=== PATIENT | male | born 1960 | race Caucasian/White ===

== ENCOUNTER 2021-06-25 07:33 | Emergency (ER) | payer OTHER ==
[~2021-06-25] VITALS: Ht 185.4 cm; Wt 124.4 kg
[2021-06-25 09:19] LABS: BASOPHILS % (AUTO) 1 % (0-1); EOSINOPHILS % (AUTO) 1 % (1-7); LYMPHOCYTES % (AUTO) 32 % (22-44); MEAN CORPUSCULAR HEMOGLOBIN 29.9 pg (27.5-34.5); MEAN CORPUSCULAR HGB CONC 34.1 g/dL (33.2-36.2); MEAN PLATELET VOLUME 8.1 fL (7.4-10.4); MONOCYTES % (AUTO) 10 % (2-9); NEUTROPHILS % (AUTO) 55 % (42-75); PLATELET COUNT 140 x10^3/uL (130-400); RED BLOOD COUNT 5.91 x10^6/uL (4.38-5.82); RED CELL DISTRIBUTION WIDTH 14.5 % (9.4-14.8)
[2021-06-25 09:29] VITALS: BP 120/72
[2021-06-25 09:30] LABS: ALANINE AMINOTRANSFERASE 44 U/L (12-78); ALBUMIN 3.7 g/dL (3.4-5.0); ANION GAP 8 mmol/L (5-15); CALCIUM 8.5 mg/dL (8.5-10.1); CHLORIDE 102 mmol/L (98-107); CREATININE 1.13 mg/dL (0.7-1.3)
[2021-06-25 09:32] LABS: ALKALINE PHOSPHATASE 90 U/L (45-117); BILIRUBIN,TOTAL 0.9 mg/dL (0.2-1.0); TOTAL PROTEIN 7.8 g/dL (6.4-8.2)
--- NOTE | 2021-06-25 11:33 | NUR ---
PT IN ROOM. PT STATE "I ONLY WANTED A COVID TEST, YOU GUYS HAD ME WAIT OUT THERE FOR HOURS AND THEY TOOK BLOOD AND DID AN X-RAY. ALL I WANTED WAS A COVID TEST. YOU CAN CALL ME IF IT'S POSITIVE." THEN PT LEFT.
== END 2021-06-25 11:38 | disposition left against medical advice (07) ==
LOC: ED 08:10
DX: U07.1 COVID-19 (principal); B34.9 Viral infection, unspecified; R06.02 Shortness of breath
CPT/HCPCS: 71045; 80053; 85025; 87040; 99284; U0003; U0005

== ENCOUNTER 2021-06-29 10:07 | Emergency (ER) | payer OTHER ==
[~2021-06-29] VITALS: Ht 185.4 cm; Wt 120.6 kg
[2021-06-29 10:44] LABS: BASOPHILS % (AUTO) 1 % (0-1); EOSINOPHILS % (AUTO) 1 % (1-7); LYMPHOCYTES % (AUTO) 17 % (22-44); MEAN CORPUSCULAR HEMOGLOBIN 29.9 pg (27.5-34.5); MEAN CORPUSCULAR HGB CONC 34.5 g/dL (33.2-36.2); MEAN PLATELET VOLUME 7.7 fL (7.4-10.4); MONOCYTES % (AUTO) 8 % (2-9); NEUTROPHILS % (AUTO) 73 % (42-75); PLATELET COUNT 166 x10^3/uL (130-400); RED BLOOD COUNT 5.72 x10^6/uL (4.38-5.82); RED CELL DISTRIBUTION WIDTH 14.3 % (9.4-14.8)
[2021-06-29 10:56] LABS: ALBUMIN 3.7 g/dL (3.4-5.0); ANION GAP 6 mmol/L (5-15); CHLORIDE 107 mmol/L (98-107); CREATININE 1.02 mg/dL (0.7-1.3)
[2021-06-29] MEDS ORDERED: ONDANSETRON ODT 4 MG PO ONE (14:30)
[2021-06-29] MEDS ORDERED: ONDANSETRON ODT 4 MG ONE (14:34)
--- NOTE | 2021-06-29 15:02 | NUR ---
report received from Mei CERVANTES, assuming care of pt at this time.
[2021-06-29 15:04] VITALS: BP 160/100
--- NOTE | 2021-06-29 15:04 | NUR ---
PT BIB EMS FOR FEELING WEAKNESS, FATIGUE, AND COUGH X 4 DAYS. PT REPORTS THAT HE TESTED POSITIVE FOR COVID BUT HASNT BEEN GEELING ANY BETTER. DID NOT GET THE VACCINE. PT RESTING IN [facility]. CONNECTED TO MONITORING EQUIPMENT.
--- NOTE | 2021-06-29 16:28 | NUR ---
pt educated on dc instructions, pt verbalized understanding, ambulatory to dc desk with steady gait.
== END 2021-06-29 16:49 | disposition home or self-care (01) ==
LOC: ED 10:25
DX: U07.1 COVID-19 (principal); J06.9 Acute upper respiratory infection, unspecified; R53.1 Weakness
CPT/HCPCS: 36415; 71045; 80048; 82040; 85025; 93005; 99285; Q0162